=== PATIENT | female | born 1965 | race Caucasian/White ===

== ENCOUNTER → 2016-07-30 | Outpatient (CLI) | payer OTHER ==
[~2016-07-30] MED LIST: AMITRIPTYLINE H50 MG PO; ASPIR 8181 MG PO; BUTALB-ACETAMI1 EAC1 PO; CLARITIN10 M2 PO; DEPAKOTE ER500 MG PO; FLONASE 0.05% N16 GM; IBUPROFEN800 MG PO; ISOSORBIDE MONO30 MG PO; LIORESAL TAB 1010 MG PO; LOPRESSOR 25 MG25 MG PO; MOBIC15 MG PO; NASONEX17 GM; NITROSTAT 0.40.4 MG SL
[2016-07-30 10:04] LABS: HEMOGLOBIN 11.7 gm/dl (12.3-15.3); RED BLOOD COUNT 3.75 M/UL (4.00-5.10)
[2016-07-30 10:21] LABS: BUN/CREATININE RATIO 12 (0-10)
== END ==
LOC: LAB 09:20
PROVIDERS: Internal Medicine Cardiovascular Disease
DX: I20.9 Angina pectoris, unspecified (principal); R94.39 Abnormal result of other cardiovascular function study; R00.0 Tachycardia, unspecified; R00.2 Palpitations
CPT/HCPCS: 36415; 71020; 80048; 85025

== ENCOUNTER → 2016-08-01 | Outpatient (CLI) | payer OTHER ==
[~2016-08-01] VITALS: Ht 170.2 cm; Wt 58.1 kg
== END | disposition home or self-care (01) ==
LOC: CATH 07:29
DX: I20.0 Unstable angina (principal); R94.39 Abnormal result of other cardiovascular function study; R07.9 Chest pain, unspecified; F17.210 Nicotine dependence, cigarettes, uncomplicated; R00.2 Palpitations; R00.0 Tachycardia, unspecified; Z79.82 Long term (current) use of aspirin; Z79.1 Long term (current) use of non-steroidal anti-inflammatories (NSAID); Z79.899 Other long term (current) drug therapy; R94.31 Abnormal electrocardiogram [ECG] [EKG]; G43.719 Chronic migraine without aura, intractable, without status migrainosus
CPT/HCPCS: C1769; C1894; J1644; J2250; J7030; Q0163; Q9963

== ENCOUNTER → 2020-08-18 | Outpatient (CLI) | payer OTHER ==
[~2020-08-18] MED LIST changes: +BOTOX200 UNIT INJ; +SUMATRIPTAN INH
== END ==
LOC: RAD 16:14
DX: M54.9 Dorsalgia, unspecified (principal); M51.36 Other intervertebral disc degeneration, lumbar region
CPT/HCPCS: 72110

== ENCOUNTER → 2020-11-17 | Outpatient (CLI) | payer OTHER | LOC: OPSV 11:24 | DX: M81.0 Age-related osteoporosis without current pathological fracture (principal) | CPT/HCPCS: 96365; J3489 ==

== ENCOUNTER → 2021-04-12 | Outpatient (CLI) | payer OTHER | LOC: KOH-I 04-06 10:30 | DX: E87.0 Hyperosmolality and hypernatremia (principal) | CPT/HCPCS: 70450 ==

== ENCOUNTER → 2021-04-25 | Outpatient (CLI) | payer MEDICARE, OTHER | LOC: KOH-I 04-17 15:30 | DX: M54.9 Dorsalgia, unspecified (principal); R07.81 Pleurodynia; F17.210 Nicotine dependence, cigarettes, uncomplicated; R91.1 Solitary pulmonary nodule; S22.41XA Multiple fractures of ribs, right side, initial encounter for closed fracture | CPT/HCPCS: 71045; 71101; 71271 ==

== ENCOUNTER → 2021-12-14 | Outpatient (CLI) | payer MEDICARE, OTHER | LOC: KOH-I 14:30 | DX: E04.2 Nontoxic multinodular goiter (principal) | CPT/HCPCS: 76536 ==